=== PATIENT | male | born 1965 | race Two or more races ===

== ENCOUNTER 2024-03-22 18:23 | Emergency (ER) | payer OTHER ==
[~2024-03-22] VITALS: Ht 175.3 cm; Wt 83.9 kg
[2024-03-22] MEDS ORDERED: hydrOXYzine HCL 25 MG TABLET PO ONE (23:45)
[2024-03-22] MEDS ORDERED: DEXAMETHASONE SODIUM PHOSPHATE 4 MG/ML VIAL IM ONE (23:45)
[2024-03-23] MEDS ORDERED: hydrOXYzine PAMOATE 25 MG CAPSULE PO ONE (00:15)
== END 2024-03-23 00:18 | disposition home or self-care (01) ==
LOC: ER 18:25
DX: L23.2 Allergic contact dermatitis due to cosmetics (principal)